=== PATIENT | male | born 1990 | race African-American/Black ===

== ENCOUNTER 2020-09-25 11:50 | Emergency (ER) | payer OTHER ==
[~2020-09-25] VITALS: Ht 188 cm; Wt 77.3 kg
--- NOTE | 2020-09-25 12:46 | REP ---
INDICATION: trauma. COMPARISON: None. TECHNIQUE: Four views of the right ankle. FINDINGS: Four views of the right ankle demonstrate intact ankle mortise. Bones, joints, and soft tissues are unremarkable. No fracture or subluxation is seen. IMPRESSION: Negative radiographs of the right ankle. <Electronically signed by Josh Chang > 09/25/20 [id number]
--- NOTE | 2020-09-25 12:46 | REP ---
INDICATION: trauma. COMPARISON: None. TECHNIQUE: Four views of the left knee. FINDINGS: Four views of the left knee demonstrate clothing artifact over the distal thigh. Bones, joints and soft tissues are otherwise unremarkable.. No fracture or subluxation is seen. No opaque foreign body noted. There is no sunrise view included. IMPRESSION: Negative four view left knee series. No sunrise view.. <Electronically signed by Josh Chang > 09/25/20 [id number]
[2020-09-25 13:19] VITALS: BP 122/65
== END 2020-09-25 13:20 | disposition home or self-care (01) ==
LOC: EDBD 11:50 → M ED 11:50
DX: S80.819A Abrasion, unspecified lower leg, initial encounter (principal); S80.10XA Contusion of unspecified lower leg, initial encounter; W20.8XXA Other cause of strike by thrown, projected or falling object, initial encounter; Y92.099 Unspecified place in other non-institutional residence as the place of occurrence of the external cause; Y93.9 Activity, unspecified; Y99.9 Unspecified external cause status